=== PATIENT | female | born 1980 | race Caucasian/White ===

== ENCOUNTER 2023-11-14 19:48 | Emergency (ER) | payer OTHER ==
--- NOTE | 2023-11-14 21:41 | ED ---
Fall HPI - General Source: patient, RN notes reviewed Mode of arrival: ambulatory <Shea Singer - Last Filed: 11/14/23 21:39> <Jessica Paiz - Last Filed: 11/19/23 23:16> - General Chief Complaint: Fall Stated Complaint: fall at [facility]-back and neck pain Time Seen by Provider: 11/14/23 21:40 - History of Present Illness Initial Comments: Quick [id number] female presenting low back pain status post mechanical fall prior to arrival. Patient was sent from [place]. She states she slipped on water on the floor and fell directly onto her lower back. Denies hitting her head or loss of consciousness. She is not on thinners. She is complaining of low back pain. She is able to ambulate. (Shea Singer) 43-year-old female presents to the emergency department for evaluation of low back pain. Patient states that she was at [place] when she was walking and slipped on some water that was on the floor. She states that she fell backwards landing on her low back and buttocks. She denies head injury, blood thinners. Denies loss of consciousness. She denies loss of bowel or bladder function, saddle anesthesia, urinary retention. She is able to ambulate. (Jessica Paiz) - Related Data Previous Rx's Medication Instructions Recorded Ketorolac [Toradol] 10 mg PO Q8HR #15 tab 11/15/23 Lidocaine 5% Patch [Lidoderm 5% 1 patch TOPICAL DAILY #30 patch 11/15/23 Patch] Allergies Allergy/AdvReac Type Severity Reaction Status Date / Time No Known Allergies Allergy Verified 11/14/23 20:48 Review of Systems ROS Other: All systems not noted in ROS Statement are negative. <Shea Singer - Last Filed: 11/14/23 21:39> ROS Other: All systems not noted in ROS Statement are negative. <Jessica Paiz - Last Filed: 11/19/23 23:16> ROS Statement: Those systems with pertinent positive or pertinent negative responses have been documented in the HPI. Past Medical History Past Medical History: No Reported History History of Any Multi-Drug Resistant Organisms: None Reported Past Surgical History: No Surgical Hx Reported Past Psychological History: Anxiety Smoking Status: Current every day smoker Past Alcohol Use History: Abuse Past Drug Use History: None Reported <Shea Singer - Last Filed: 11/14/23 21:39> General Exam Limitations: no limitations <Shea Singer - Last Filed: 11/14/23 21:39> Limitations: no limitations General appearance: alert, in no apparent distress Head exam: Present: atraumatic, normocephalic, normal inspection Eye exam: Present: normal appearance, PERRL, EOMI. Absent: scleral icterus, conjunctival injection, periorbital swelling ENT exam: Present: normal exam, mucous membranes moist Neck exam: Present: normal inspection. Absent: tenderness, meningismus, lymphadenopathy Respiratory exam: Present: normal lung sounds bilaterally. Absent: respiratory distress, wheezes, rales, rhonchi, stridor Cardiovascular Exam: Present: regular rate, normal rhythm, normal heart sounds. Absent: systolic murmur, diastolic murmur, rubs, gallop, clicks Extremities exam: Present: normal inspection, full ROM, normal capillary refill. Absent: tenderness, pedal edema, joint swelling, calf tenderness Back exam: Present: full ROM, tenderness Neurological exam: Present: alert, oriented X3, CN II-XII intact Psychiatric exam: Present: normal affect, normal mood Skin exam: Present: warm, dry, intact, normal color. Absent: rash <Jessica Paiz - Last Filed: 11/19/23 23:16> - General Exam Comments Initial Comments: Visual Physical Exam Vital signs reviewed General: Well-appearing, nontoxic, no acute distress. Head: Normocephalic, atraumatic Eyes: PERRLA, EOMI ENT: Airway patent Chest: Nonlabored breathing Skin: No visual rash, normal skin tone Neuro: Alert and oriented 3 Musculoskeletal: No gross abnormalities (Shea Singer) Course Vital Signs 11/14/23 11/15/23 20:49 01:05 Temperature 98.5 F 98.2 F Pulse Rate 65 66 Respiratory 16 18 Rate Blood Pressure 108/69 107/69 O2 Sat by Pulse 100 100 Oximetry Medical Decision Making <Shea Singer - Last Filed: 11/14/23 21:39> <Jessica Paiz - Last Filed: 11/19/23 23:16> - Medical Decision Making I completed the quick note portion of this chart signed Shea Singer PA-C (Shea Singer) Was pt. sent in by a medical professional or institution (, [facility], ELECTRICIAN TECHNICIAN, urgent care, hospital, or halfway...) When possible be specific @ -No Did you speak to anyone other than the patient for history (EMS, parent, family, police, friend...)? What history was obtained from this source @ -No Did you review nursing and triage notes (agree or disagree)? Why? @ -I reviewed and agree with nursing and triage notes Were old charts reviewed (outside hosp., previous admission, EMS record, old EKG, old radiological studies, urgent care reports/EKG's, halfway records)? Report findings @ -No old charts were reviewed Differential Diagnosis (chest pain, altered mental status, abdominal pain women, abdominal pain men, vaginal bleeding, weakness, fever, dyspnea, syncope, headache, dizziness, GI bleed, back pain, seizure, CVA, palpatations, mental health, musculoskeletal)? @ -Differential Back Pain: Strain, zoster, cauda equina syndrome, epidural abscess, vertebral osteomyelitis, discitis, fracture, subluxation, disc herniation, DJD, spinal stenosis, dissection, AAA, pancreatitis, peptic ulcer disease, pyelonephritis, kidney stone, this is not meant to be an all-inclusive list. EKG interpreted by me (3pts min.). @ -None X-rays interpreted by me (1pt min.). @ -X-rays of the lumbar spine show no evidence of acute fracture or dislocation CT interpreted by me (1pt min.). @ -None done U/S interpreted by me (1pt. min.). @ -None done What testing was considered but not performed or refused? (CT, X-rays, U/S, labs)? Why? @ -None What meds were considered but not given or refused? Why? @ -None Did you discuss the management of the patient with other professionals (professionals i.e. ROXANNE Ruiz, ELECTRICIAN TECHNICIAN, lab, RT, psych nurse, case management social worker, guard entrance registrar, teacher, contact officer, window caser)? Give summary @ -No Was smoking cessation discussed for >3mins.? @ -No Was critical care preformed (if so, how long)? @ -No Were there social determinants of health that impacted care today? How? (Homelessness, low income, unemployed, alcoholism, drug addiction, transportation, low edu. Level, literacy, decrease access to med. care, fdc, rehab)? @ -No Was there de-escalation of care discussed even if they declined (Discuss DNR or withdrawal of care, Hospice)? DNR status @ -No What co-morbidities impacted this encounter? (DM, HTN, Smoking, COPD, CAD, Cancer, CVA, ARF, Chemo, Hep., AIDS, mental health diagnosis, sleep apnea, morbid obesity)? @ -None Was patient admitted / discharged? Hospital course, mention meds given and route, prescriptions, significant lab abnormalities, going to OR and other pertinent info. @ -Discharge. Patient presented to the emergency department for evaluation of low back pain following a fall. She states that she slipped on water causing her to fall. She denies head injury, loss of consciousness, blood thinners. Denies loss of bowel or bladder function, saddle anesthesia, urinary retention. She is reporting pain in her low back. X-rays were obtained which showed no evidence of acute fracture. She was provided medication for pain control while in the emergency department. Patient will be discharged back to [facility]. She is understanding and agreeable with this plan. Patient stable at time of discharge. Case discussed with Dr. Khanna. Undiagnosed new problem with uncertain prognosis? @ -No Drug Therapy requiring intensive monitoring for toxicity (Heparin, Nitro, Insulin, Cardizem)? @ -No Were any procedures done? @ -No Diagnosis/symptom? @ -Mechanical back pain Acute, or Chronic, or Acute on Chronic? @ -Acute Uncomplicated (without systemic symptoms) or Complicated (systemic symptoms)? @ -Uncomplicated Side effects of treatment? @ -No Exacerbation, Progression, or Severe Exacerbation? @ -No Poses a threat to life or bodily function? How? (Chest pain, [place], [place], pneumonia, PE, COPD, DKA, ARF, appy, cholecystitis, CVA, Diverticulitis, Homicidal, Suicidal, threat to staff... and all critical care pts) @ -No (Jessica Paiz) Disposition <Shea Singer - Last Filed: 11/14/23 21:39> Is patient prescribed a controlled substance at d/c from ED?: No <Jessica Paiz - Last Filed: 11/19/23 23:16> Clinical Impression: Fall, Back pain Disposition: HOME SELF-CARE Condition: Stable Instructions (If sedation given, give patient instructions): Fall Prevention (ED) Additional Instructions: Please follow up with your primary care provider. Return to the emergency department for new or worsening symptoms. Prescriptions: Lidocaine 5% Patch [Lidoderm 5% Patch] 1 patch TOPICAL DAILY #30 patch Ketorolac [Toradol] 10 mg PO Q8HR #15 tab Referrals: None,Stated [Primary Care Provider] - 1-2 days
--- NOTE | 2023-11-15 00:21 | XR ---
EXAM: XR Lumbosacral Spine, 2 or 3 Views CLINICAL HISTORY: ITS.REASON XR Reason: Low back injury TECHNIQUE: Frontal and lateral views of the lumbar spine and sacrum. COMPARISON: No relevant prior studies available. FINDINGS: Vertebrae: Straightening of the lumbar lordosis. Multilevel degenerative endplate changes. Disc space narrowing at L4-5 and L5-S1. Osseous demineralization. No acute compression fracture. Sacrum/coccyx: Unremarkable as visualized. No acute fracture. Disc spaces: See above. Soft tissues: Unremarkable. IMPRESSION: No acute findings in the lumbar spine.
[2023-11-15] MEDS: KETOROLAC 15 MG/ML 1 ML VIAL IM STA (00:46)
[2023-11-15] MEDS: LIDOCAINE 4% PATCH TOPICAL ONE (00:46)
[2023-11-15 01:06] VITALS: BP 107/69; PULSE 66; RESP 18; TEMP 98.2
== END 2023-11-15 01:05 | disposition home or self-care (01) ==
LOC: EC 19:48
DX: M54.50 Low back pain, unspecified (principal); F17.200 Nicotine dependence, unspecified, uncomplicated; W01.0XXA Fall on same level from slipping, tripping and stumbling without subsequent striking against object, initial encounter; Y93.01 Activity, walking, marching and hiking
CPT/HCPCS: 72100; 99283; 96372; J1885